=== PATIENT | female | born 1940 | race Caucasian/White ===

== ENCOUNTER → 2024-01-23 08:55 | Outpatient (REF) | payer OTHER, SELFPAY | LOC: RAD 08:55 | PROVIDERS: ATTENDING PHYSICIAN Nurse Practitioner Primary Care | DX: K21.9 Gastro-esophageal reflux disease without esophagitis (principal); R13.19 Other dysphagia | CPT/HCPCS: 74246 ==

== ENCOUNTER → 2024-06-10 11:02 | Outpatient (REF) | payer OTHER, SELFPAY | LOC: WDC 11:02 | PROVIDERS: ATTENDING PHYSICIAN Nurse Practitioner Primary Care | DX: M85.89 Other specified disorders of bone density and structure, multiple sites (principal); Z12.31 Encounter for screening mammogram for malignant neoplasm of breast | CPT/HCPCS: 77063; 77067; 77080 ==

== ENCOUNTER → 2024-06-20 06:28 | Day surgery (SDC) | payer OTHER, SELFPAY | LOC: GI 06:28 | PROVIDERS: ATTENDING PHYSICIAN Internal Medicine | DX: R13.14 Dysphagia, pharyngoesophageal phase (principal); K44.9 Diaphragmatic hernia without obstruction or gangrene; K22.2 Esophageal obstruction; K31.7 Polyp of stomach and duodenum; K31.89 Other diseases of stomach and duodenum; R93.3 Abnormal findings on diagnostic imaging of other parts of digestive tract; K21.00 Gastro-esophageal reflux disease with esophagitis, without bleeding; K29.50 Unspecified chronic gastritis without bleeding; K20.80 Other esophagitis without bleeding | CPT/HCPCS: 43239; 88305; 88312; 88342 ==

== ENCOUNTER 2025-01-22 06:27 | Day surgery (SDC) | payer OTHER, SELFPAY | END 2025-01-22 09:42 | disposition home or self-care (01) | LOC: GI 06:27 | PROVIDERS: ATTENDING PHYSICIAN Internal Medicine; FAMILY PHYSICIAN Internal Medicine Geriatric Medicine | DX: R13.14 Dysphagia, pharyngoesophageal phase (principal); K22.2 Esophageal obstruction; K44.9 Diaphragmatic hernia without obstruction or gangrene; K22.11 Ulcer of esophagus with bleeding; K31.7 Polyp of stomach and duodenum | CPT/HCPCS: 43235 ==

== ENCOUNTER 2025-04-03 06:23 | Day surgery (SDC) | payer OTHER, SELFPAY | END 2025-04-03 11:20 | disposition home or self-care (01) | LOC: GI 06:23 | PROVIDERS: ATTENDING PHYSICIAN Internal Medicine | DX: R13.14 Dysphagia, pharyngoesophageal phase (principal); K44.9 Diaphragmatic hernia without obstruction or gangrene; K31.7 Polyp of stomach and duodenum; K22.89 Other specified disease of esophagus; K21.01 Gastro-esophageal reflux disease with esophagitis, with bleeding; K22.2 Esophageal obstruction; Z13.810 Encounter for screening for upper gastrointestinal disorder | CPT/HCPCS: 43249; 43239; 88305 ==

== ENCOUNTER → 2025-07-01 12:49 | Outpatient (REF) | payer OTHER, SELFPAY | LOC: WDC 12:49 | PROVIDERS: ATTENDING PHYSICIAN Nurse Practitioner Primary Care | DX: Z12.31 Encounter for screening mammogram for malignant neoplasm of breast (principal) | CPT/HCPCS: 77063; 77067 ==